=== PATIENT | female | born 1975 | race Caucasian/White ===

== ENCOUNTER → 2017-07-15 | Outpatient (CLI) | payer SELFPAY | LOC: COL.RAD 15:51 | DX: J45.40 Moderate persistent asthma, uncomplicated (principal) ==

== ENCOUNTER → 2017-07-24 | Outpatient (CLI) | payer SELFPAY | LOC: COL.PUL 07-19 12:15 | DX: J45.909 Unspecified asthma, uncomplicated (principal); R05 Cough ==

== ENCOUNTER → 2018-08-22 | Outpatient (CLI) | payer OTHER | LOC: COL.VAS 08-08 08:00 | DX: I34.0 Nonrheumatic mitral (valve) insufficiency (principal); R07.89 Other chest pain ==

== ENCOUNTER → 2018-10-15 | Outpatient (CLI) | payer OTHER | LOC: COL.PUL 09:57 | DX: J45.40 Moderate persistent asthma, uncomplicated (principal); K21.9 Gastro-esophageal reflux disease without esophagitis | CPT/HCPCS: J7674 ==

== ENCOUNTER → 2019-07-07 | Outpatient (CLI) | payer OTHER | LOC: COL.RAD 07:51 | DX: M46.95 Unspecified inflammatory spondylopathy, thoracolumbar region (principal); M41.85 Other forms of scoliosis, thoracolumbar region; R10.31 Right lower quadrant pain; Z90.89 Acquired absence of other organs; Z90.49 Acquired absence of other specified parts of digestive tract | CPT/HCPCS: Q9967 ==

== ENCOUNTER 2021-07-09 10:04 | Emergency (ER) | payer OTHER ==
[~2021-07-09] VITALS: Ht 160 cm; Wt 84.1 kg
[2021-07-09 10:13] VITALS: TEMP 98.1
[2021-07-09] MEDS ORDERED: PREDNISONE50 MG PO (10:31)
[2021-07-09] MEDS ORDERED: EPIPEN 2-PAK1 MG/ML IM (10:31)
[2021-07-09 10:53] VITALS: BP 116/75; PULSE 72
== END 2021-07-09 10:53 | disposition home or self-care (01) ==
LOC: COL.ER 10:04
DX: T78.40XA Allergy, unspecified, initial encounter (principal)
CPT/HCPCS: J7512

== ENCOUNTER → 2022-06-20 | Outpatient (CLI) | payer OTHER ==
[~2022-06-20] MED LIST: EPIPEN 2-PAK1 MG/ML IM; PREDNISONE50 MG PO
== END ==
LOC: MC.RAD 07:58
DX: Z12.31 Encounter for screening mammogram for malignant neoplasm of breast (principal)